=== PATIENT | male | born 1945 | race Two or more races ===

== ENCOUNTER 2016-10-15 13:41 | Emergency (ER) | payer SELFPAY ==
[~2016-10-15] VITALS: Ht 175.3 cm; Wt 86.2 kg
[2016-10-15 13:41] VITALS: BP 0/0
[~2016-10-15 13:41] MED LIST: AMIODARONE HCL (50 MG/ ML) 3 ML VIAL IV ONE; D5W 5% 100 ML MINI BAG IV ONE; EPINEPHrine HCL 1 MG/10 ML SYRG IV ONE; SODIUM BICARBONATE 8.4% INJ 50ML SYRINGE IV ONE
[2016-10-15] MEDS ORDERED: AMIODARONE HCL 900 MG in DEXTROSE 500 ML IV SCH (14:12)
[2016-10-15] MEDS ORDERED: AMIODARONE HCL 150 MG in D5W 5% 100 ML IV ONE (14:15)
== END 2016-10-15 16:43 | disposition expired ==
LOC: ER 13:46
DX: I46.9 Cardiac arrest, cause unspecified (principal); E11.9 Type 2 diabetes mellitus without complications; Y93.89 Activity, other specified; Y92.89 Other specified places as the place of occurrence of the external cause; Y99.8 Other external cause status
CPT/HCPCS: 31500; 36600; 71010; 82805; 92950; 94002; 96365; 99285; J0171; J0282; J7060